=== PATIENT | male | born 1980 | race Caucasian/White ===

== ENCOUNTER 2016-10-11 13:50 | Emergency (ER) | payer MEDICAID ==
[~2016-10-11] VITALS: Ht 172.7 cm; Wt 73.7 kg
[2016-10-11 13:52] VITALS: BP 120/75
[2016-10-11] MEDS ORDERED: IBUPROFEN 200 MG TABLET PO STA (14:09)
[2016-10-11] MEDS ORDERED: IBUPROFEN 200 MG TABLET ONE (14:19)
== END 2016-10-11 15:46 | disposition home or self-care (01) ==
LOC: ED 15:44
DX: Z76.0 Encounter for issue of repeat prescription (principal); M25.512 Pain in left shoulder
CPT/HCPCS: 99283